=== PATIENT | male | born 1940 | race Caucasian/White ===

== ENCOUNTER → 2016-02-17 | Outpatient (CLI) | payer MEDICARE ==
[~2016-02-17] MED LIST: ALBUTEROL SULFATE 2.5 MG/3 ML VIAL NEB ONE
== END ==
LOC: RESP 14:10
PROVIDERS: ATTEND Family Medicine
DX: J44.1 Chronic obstructive pulmonary disease with (acute) exacerbation (principal)
CPT/HCPCS: 94060; J7611

== ENCOUNTER → 2017-02-08 | Outpatient (CLI) | payer MEDICARE | END | disposition home or self-care (01) | LOC: GMAB 17:03 | PROVIDERS: ATTEND Family Medicine | DX: R53.82 Chronic fatigue, unspecified (principal); R10.814 Left lower quadrant abdominal tenderness; Z13.6 Encounter for screening for cardiovascular disorders; Z12.5 Encounter for screening for malignant neoplasm of prostate | CPT/HCPCS: 84443; G0103 ==

== ENCOUNTER → 2017-02-09 | Outpatient (CLI) | payer MEDICARE ==
--- NOTE | 2017-02-09 19:50 | CT ---
EXAM DESCRIPTION: Abdomen/Pelvis w/wo Contrast: CT. CLINICAL HISTORY: LLQ ABD TENDERNESS COMPARISON: None. TECHNIQUE: Spiral-axial scans at 5.0 mm intervals through the abdomen and pelvis before and after standard dose nonionic IV contrast. No oral contrast. Coronal and sagittal 2.0 mm reconstructions. No adverse reactions. Total Exam DLP 1746.48 mGy - cm. This exam was performed according to our departmental CT dose-optimization program which includes automated exposure control, adjustment of the mA and/or kV according to patient size and/or use of iterative reconstruction technique; to reduce radiation dose to as low as reasonably achievable (ALARA). FINDINGS: Lung bases and pleura: Small pleural effusion. Senescent markings in the lungs. Liver, Stomach, Spleen, Adrenal Glands: Calcification in the spleen. Fatty density of the liver. Normal enhancement and size of the organs. Pancreas, Gallbladder, Ducts: Gallbladder visualized. Pancreas and ducts unremarkable. Kidneys and Ureters: Minimal cortical lobulation bilaterally. No hydronephrosis or hydroureter. No perinephric stranding. Mesentery: No stranding in the lower midline anterior abdominal hernia which contains loops of small bowel. No free air or free fluid. Aorta: Moderate atherosclerotic calcification distal aorta also involving the proximal renal arteries. Small Bowel: Unremarkable except for distal loops involved in the anterior midline hernia which begins of the pubic symphysis and extends to the base of the penis. These loops are not obstructed or incarcerated. Terminal Ileum/Cecum: Normal caliber of the TI and cecum. Appendix is not seen. Normal density of the surrounding fat. Colon: Mostly fecal matter in the colon. Diverticula more prevalent in the lower descending colon and sigmoid colon but no mucosal thickening and normal enhancement or abnormal density in the surrounding fat or serosa. Pelvic Organs: Urinary bladder is abutting the hernia but not within the hernia. No radiodense stones. Surgical clips in the upper pelvis. Prostate gland is abutting the bladder and the seminal vesicles. Spine and Bony Pelvis: Advanced spondylosis and anterolisthesis L5-S1. Compression type vertebral body fracture L1 with prior augmentation. Spondylosis in the included thoracic spine. Abdominal Wall/Back Soft Tissues: Hernia bilateral small fatty inguinal hernias not containing bowel. As previously described which begins at the level of the pubic symphysis. IMPRESSION: 1. Inferior abdominal pelvic midline wall hernia which begins at the pubic symphysis and extends to the base of the penis containing loops of small bowel which are not obstructed. No mesenteric edema in the hernia. No fluid collection. Bilateral small inguinal hernias containing fat, no bowel. No bowel obstruction elsewhere. 2. Diverticulosis distal colon and sigmoid. No diverticulitis in the left lower quadrant. No free air. 3. Steatosis of the liver. Moderate atherosclerotic calcification in the aorta. Small left pleural effusion. Spondylosis and anterolisthesis at L5-S1. Electronically signed by: Wan Butcher MD 02/09/2017 7:49 PM [employer]
== END | disposition home or self-care (01) ==
LOC: CT 10:02
PROVIDERS: ATTEND Family Medicine
DX: R10.814 Left lower quadrant abdominal tenderness (principal)

== ENCOUNTER → 2018-02-26 | Outpatient (CLI) | payer MEDICARE | LOC: GMAE 10:42 | PROVIDERS: ATTEND Family Medicine | DX: I10 Essential (primary) hypertension (principal) ==

== ENCOUNTER → 2019-11-11 | Outpatient (CLI) | payer MEDICARE ==
--- NOTE | 2019-11-11 15:41 | CT ---
EXAM DESCRIPTION: Chest w/o Contrast CLINICAL HISTORY: 79 years Male, PULMONARY NODULE COMPARISON: Chest x-ray dated 12 March 2017 TECHNIQUE: Transaxial images were obtained without intravenous contrast media. Sagittal and coronal reconstruction was performed.This exam was performed according to our departmental dose-optimization program, which includes automated exposure control, adjustment of the mA and/or kV according to patient size and/or use of iterative reconstruction technique. FINDINGS: The thyroid is normal in appearance. No pathologic axillary adenopathy is observed. No hilar or mediastinal adenopathy is seen. Coronary artery calcification is observed. Calcific atherosclerotic changes observed in the abdominal aorta without evidence of aneurysmal dilatation. Scattered calcified granulomas are seen in the spleen. No adrenal masses are detected. A nodule is observed in the superior aspect of the right hilum measuring 1.7 cm in greatest dimension. Somewhat nodular infiltrate is observed caudad to this posteriorly. A nodule is observed in the right upper lobe inferiorly nodules also observed in the left lower lobe measuring 6.8 mm in diameter. A right lower lobe pulmonary nodule is detected measuring 9 mm in diameter. Mild degenerative changes are observed in the lower thoracic spine. IMPRESSION: Multiple pulmonary nodules are observed in both lungs and are worrisome for the possibility of metastatic neoplasm. The largest nodule measures 1.69 cm in diameter. Further evaluation the patient with PET/CT or tissue sampling should be considered. Electronically signed by: Bill Neville MD 11/11/2019 3:39 PM CDT
== END ==
LOC: CT 10:00
PROVIDERS: ATTEND Family Medicine
DX: R91.8 Other nonspecific abnormal finding of lung field (principal)

== ENCOUNTER → 2019-11-25 | Outpatient (CLI) | payer MEDICARE | LOC: GMAE 11:27 | PROVIDERS: ATTEND Family Medicine | DX: C61 Malignant neoplasm of prostate (principal); I10 Essential (primary) hypertension ==

== ENCOUNTER → 2020-02-03 | Outpatient (CLI) | payer MEDICARE | LOC: BFHH 13:42 | PROVIDERS: ATTEND Internal Medicine Hematology & Oncology | DX: I69.311 Memory deficit following cerebral infarction (principal); I10 Essential (primary) hypertension; Z85.46 Personal history of malignant neoplasm of prostate; I65.23 Occlusion and stenosis of bilateral carotid arteries; F01.50 Vascular dementia, unspecified severity, without behavioral disturbance, psychotic disturbance, mood disturbance, and anxiety ==

== ENCOUNTER → 2020-03-04 | Outpatient (CLI) | payer MEDICARE | LOC: BFHH 14:11 | PROVIDERS: ATTEND Internal Medicine Infectious Disease | DX: I69.311 Memory deficit following cerebral infarction (principal); Z85.46 Personal history of malignant neoplasm of prostate; I69.351 Hemiplegia and hemiparesis following cerebral infarction affecting right dominant side; E03.9 Hypothyroidism, unspecified; E78.00 Pure hypercholesterolemia, unspecified; J43.9 Emphysema, unspecified; F01.50 Vascular dementia, unspecified severity, without behavioral disturbance, psychotic disturbance, mood disturbance, and anxiety ==